=== PATIENT | female | born 1960 | race African-American/Black ===

== ENCOUNTER 2020-04-03 09:34 | Inpatient (IN) | payer OTHER ==
[2020-04-03 09:50] VITALS: BMI 48.0
[2020-04-03] MEDS ORDERED: ASPIRIN 81 MG CHEWABLE TABLETS PO ONE (10:09)
[2020-04-03] MEDS ORDERED: diphenhydrAMINE HCL 25 MG CAPSULE (FP) PO ONE ×2 (10:10→10:25)
[2020-04-03] MEDS ORDERED: ASPIRIN 81 MG CHEWABLE TABLETS ONE (10:25)
[2020-04-03 10:40] LABS: BASO % 0.6 % (0-2.0); EOS % 3.7 % (0-4.5); HEMATOCRIT 41.3 % (32.4-45.2); HEMOGLOBIN 13.2 GM/dL (10.7-15.3); LYMPH % 38.1 % (8-40); MCH 25.8 pg (25.7-33.7); MCHC 31.9 g/dl (32.0-36.0); MEAN CELL VOLUME 80.7 fl (80-96); MEAN PLT VOLUME 8.6 fl (7.5-11.1); MONO % 6.4 % (3.8-10.2); NEUT % 51.2 % (42.8-82.8); PLATELET COUNT 265 K/MM3 (134-434); RBC 5.12 M/mm3 (3.60-5.2); WHITE BLOOD COUNT 5.4 K/mm3 (4.0-10.0)
[2020-04-03 10:48] LABS: INR 1.11 (0.83-1.09); PROTHROMBIN TIME (PATIENT) 13.4 SEC (9.7-13.0)
[2020-04-03 10:51] LABS: ACTIVATED PTT 32.2 SECONDS (25.2-36.5)
[2020-04-03 11:02] LABS: POTASSIUM 4.2 mmol/L (3.5-5.1)
[2020-04-03 11:04] LABS: CALCIUM 9.4 mg/dL (8.5-10.1)
[2020-04-03 11:05] LABS: ALBUMIN 3.8 g/dl (3.4-5.0); BLOOD UREA NITROGEN 12.2 mg/dL (7-18)
[2020-04-03 11:08] LABS: CREATININE 0.7 mg/dL (0.55-1.3)
[2020-04-03 11:09] LABS: BILIRUBIN,TOTAL 0.4 mg/dL (0.2-1); TOT PROT 7.7 g/dl (6.4-8.2)
[2020-04-03] MEDS ORDERED: METOPROLOL TARTRATE 25 MG TABLET (FP) PO ONE (12:10)
[2020-04-03] MEDS ORDERED: METOPROLOL TARTRATE 25 MG TABLET (FP) ONE (12:32)
[2020-04-03 14:40] LABS: URINE APPEARANCE CLOUDY; URINE BILIRUBIN NEGATIVE (NEGATIVE); URINE COLOR YELLOW; URINE GLUCOSE (UA) NEGATIVE (NEGATIVE); URINE KETONE NEGATIVE (NEGATIVE); URINE LEUK ESTERASE NEGATIVE (NEGATIVE); URINE NITRITE NEGATIVE (NEGATIVE); URINE PROTEIN NEGATIVE (NEGATIVE); URINE UROBILINOGEN 0.2 mg/dL (0.2-1.0)
[2020-04-03] MEDS ORDERED: LISINOPRIL 20 MG TABLET ONE (16:57)
[2020-04-03] MEDS: LISINOPRIL 20 MG TABLET PO SCH (17:07)
[2020-04-03] MEDS: INSULIN SLIDING SCALE (NOVOLOG) 1 VIAL SQ SCH ×2 (17:12→21:59)
[2020-04-03] MEDS ORDERED: ATORVASTATIN CA 80 MG TABLET (FP) PO SCH (22:00)
[2020-04-03] MEDS ORDERED: ATORVASTATIN CA 40 MG TABLET (FP) PO SCH (22:00)
[2020-04-04] MEDS: INSULIN SLIDING SCALE (NOVOLOG) 1 VIAL SQ SCH ×4 (07:31→22:31)
[2020-04-04 07:35] LABS: HEMOGLOBIN 13.1 GM/dL (10.7-15.3); MEAN CELL VOLUME 81.3 fl (80-96); MEAN PLT VOLUME 8.6 fl (7.5-11.1); PLATELET COUNT 269 K/MM3 (134-434); RBC 5.04 M/mm3 (3.60-5.2); RDW 15.1 % (11.6-15.6); WHITE BLOOD COUNT 6.5 K/mm3 (4.0-10.0)
[2020-04-04 07:48] LABS: POTASSIUM 4.1 mmol/L (3.5-5.1)
[2020-04-04 07:55] LABS: BLOOD UREA NITROGEN 13.5 mg/dL (7-18); CALCIUM 9.4 mg/dL (8.5-10.1)
[2020-04-04 07:58] LABS: CREATININE 0.7 mg/dL (0.55-1.3); PHOSPHOROUS 4.5 mg/dL (2.5-4.9)
[2020-04-04] MEDS ORDERED: HEPARIN NA (PORCINE) 5,000 UNITS/ML 1ML VIAL IVPUSH PRN ×2 (08:06)
[2020-04-04] MEDS ORDERED: HEPARIN - 25,000 UNIT in SODIUM CHLORIDE 495 ML IV SCH (08:15)
[2020-04-04] MEDS ORDERED: REGADENOSON 0.4 MG/5 ML PRE-FILLED SYRINGE IVPUSH ONE ×2 (09:31→09:45)
[2020-04-04] MEDS ORDERED: ENOXAPARIN NA (PORCINE) 40 MG/0.4 ML DISP.SYRIN SQ SCH (10:00)
[2020-04-04] MEDS ORDERED: METOPROLOL TARTRATE 25 MG TABLET (FP) PO SCH (10:00)
[2020-04-04] MEDS ORDERED: METOPROLOL TARTRATE 25 MG TABLET (FP) ONE (10:08)
[2020-04-04] MEDS ORDERED: ASPIRIN COATED 81 MG TABLET.EC ONE (10:09)
[2020-04-04] MEDS: ASPIRIN COATED 81 MG TABLET.EC PO SCH (10:13)
[2020-04-04] MEDS: LISINOPRIL 20 MG TABLET PO SCH (17:15)
[2020-04-04] MEDS: CLOPIDOGREL BISULFATE 75 MG TABLET (FP) PO SCH (17:15)
[2020-04-04] MEDS ORDERED: ATORVASTATIN CA 40 MG TABLET (FP) PO SCH (22:00)
[2020-04-05 01:34] VITALS: TEMP 97.7
[2020-04-05] MEDS: INSULIN SLIDING SCALE (NOVOLOG) 1 VIAL SQ SCH ×2 (06:12→11:30)
[2020-04-05 08:32] LABS: BASO % 0.4 % (0-2.0); EOS % 3.9 % (0-4.5); HEMATOCRIT 39.2 % (32.4-45.2); HEMOGLOBIN 12.6 GM/dL (10.7-15.3); LYMPH % 44.8 % (8-40); MCH 26.2 pg (25.7-33.7); MEAN CELL VOLUME 81.8 fl (80-96); MEAN PLT VOLUME 8.6 fl (7.5-11.1); MONO % 7.6 % (3.8-10.2); NEUT % 43.3 % (42.8-82.8); PLATELET COUNT 249 K/MM3 (134-434); RDW 14.6 % (11.6-15.6); WHITE BLOOD COUNT 6.3 K/mm3 (4.0-10.0)
[2020-04-05 08:44] LABS: POTASSIUM 4.5 mmol/L (3.5-5.1)
[2020-04-05 08:50] LABS: CALCIUM 8.7 mg/dL (8.5-10.1)
[2020-04-05 08:51] LABS: ALBUMIN 3.4 g/dl (3.4-5.0); MAGNESIUM 2.3 mg/dL (1.8-2.4)
[2020-04-05 08:54] LABS: CREATININE 0.7 mg/dL (0.55-1.3); PHOSPHOROUS 4.3 mg/dL (2.5-4.9)
[2020-04-05 08:55] LABS: BILIRUBIN,TOTAL 0.7 mg/dL (0.2-1)
[2020-04-05] MEDS ORDERED: EZETIMIBE 10 MG TABLET (FP) PO SCH (10:00)
[2020-04-05] MEDS ORDERED: metoPROLOL SUCCINATE 25 MG TAB.SR.24H (FP) PO SCH (10:00)
[2020-04-05] MEDS ORDERED: REGADENOSON 0.4 MG/5 ML PRE-FILLED SYRINGE IVPUSH ONE ×2 (10:17→10:45)
[2020-04-05] MEDS: ASPIRIN COATED 81 MG TABLET.EC PO SCH (13:48)
[2020-04-05] MEDS: CLOPIDOGREL BISULFATE 75 MG TABLET (FP) PO SCH (13:48)
[2020-04-05] MEDS ORDERED: RANOLAZINE E.R. 500 MG TABLET (FP) PO SCH (14:15)
[2020-04-05 14:39] VITALS: BP 140/92; PULSE 89
[2020-04-05] MEDS ORDERED: ATORVASTATIN CA 80 MG TABLET (FP) PO SCH (22:00)
== END 2020-04-05 16:34 | disposition home or self-care (01) | DRG 190 ==
LOC: JER 09:34 → JERBED 11:57 → J4W 04-04 12:27
PROVIDERS: ADMIT Internal Medicine; ATTEND Internal Medicine
DX: I21.4 Non-ST elevation (NSTEMI) myocardial infarction (principal); E66.01 Morbid (severe) obesity due to excess calories; Z68.42 Body mass index [BMI] 45.0-49.9, adult; G47.33 Obstructive sleep apnea (adult) (pediatric); I25.10 Atherosclerotic heart disease of native coronary artery without angina pectoris; E11.9 Type 2 diabetes mellitus without complications; I10 Essential (primary) hypertension; M54.9 Dorsalgia, unspecified; E78.5 Hyperlipidemia, unspecified
CPT/HCPCS: 36415; 71045-TC-FY; 78452-TC; 80048; 80053; 80061; 81003; 82550; 82553; 82962; 83036; 83721; 83735; 83880; 84100; 84443; 84484; 85025; 85027; 85610; 85730; 86850; 86900; 86901; 93005; 93010; 93017; 93306-TC; 99285-25; A9502; C9803; J1644; J2785; U0003

== ENCOUNTER 2021-07-22 10:20 | Emergency (ER) | payer OTHER ==
[2021-07-22 10:37] VITALS: BP 151/59; PULSE 72; TEMP 99.2; BMI 49.4
[2021-07-22] MEDS ORDERED: ACETAMINOPHEN 500 MG TABLET (FP) PO ONE (11:04)
[2021-07-22] MEDS ORDERED: ACETAMINOPHEN 500 MG TABLET (FP) ONE (11:22)
== END 2021-07-22 11:35 | disposition home or self-care (01) ==
LOC: JER 10:20
DX: M25.562 Pain in left knee (principal); G89.29 Other chronic pain
CPT/HCPCS: 99283-25